=== PATIENT | male | born 1985 | race Caucasian/White ===

== ENCOUNTER 2017-11-21 03:48 | Emergency (ER) | payer OTHER ==
[~2017-11-21] VITALS: Ht 185.4 cm; Wt 186.2 kg
[~2017-11-21 03:48] MED LIST: ACYCLOVIR400 MG PO; ADVAIR 250/501 DISK IH; ADVAIR 500/501 DISK IH; ALEVE220 M2 PO; ALLEGRA30 MG; ALLOPURINOL300 MG PO; ALPRAZOLAM0.5 MG PO; AMBIEN5 MG PO; AUGMENTIN875 MG PO; CIPROFLOXACIN H10 ML BOTH EYES; COLACE100 MG PO; COMPAZINE10 MG PO; CYCLOBENZAPRINE10 MG PO; DAPSONE100 MG PO; DECADRON4 MG PO; DEXAMETHASONE4 MG PO; DOC-Q-LAX TABL1 EACH PO; DOCUSATE SODIU100 M1 PO; FLEXERIL10 MG PO; FLEXERIL5 MG PO; FLONASE16 G1 BOTH NARES; IRON325 M1 PO; LISINOPRIL5 MG PO; LOW DOSE ASPIRI81 M1 PO; MONTELUKAST SOD10 MG PO; MOTRIN800 MG PO; MUCUS RELIEF600 MG PO; NAPROSYN500 MG PO; NASONEX17 GM BOTH NARES; ONDANSETRON HCL8 MG PO; PREDNISONE20 MG PO; PROAIR HFA8.5 GM IH; PROVENTIL,2.5 MG/0.5 IH; ROXICODONE5 MG PO; SINGULAIR10 MG PO; TESSALON PERLE100 MG PO; TOPROL XL25 MG PO; TRAMADOL HCL50 MG PO; ULTRAM50 MG PO; XARELTO15 MG PO; ZYLOPRIM300 MG PO
[2017-11-21 05:09] LABS: HEMATOCRIT 44.1 % (38.0-50.0); HEMOGLOBIN 14.4 G/DL (12.5-16.6); MCH 26.6 PG (29.0-34.0); MCHC 32.7 G/DL (30.0-36.0); MCV 81.5 FL (86-99); PLATELET COUNT 253 K/uL (156-360); RBC DIS.WIDTH-CV 15.8 % (11.8-14.6); RBC DIS.WIDTH-SD 45.9 % (39-53); RED BLOOD COUNT 5.41 M/uL (4.00-5.50)
[2017-11-21 05:17] LABS: CHLORIDE 105 mEq/L (99-109); SODIUM 141 mEq/L (136-147)
[2017-11-21 05:18] LABS: GLUCOSE 121 mg/dL (70-99)
[2017-11-21 05:22] LABS: CREATININE 1.1 mg/dL (0.6-1.3); GFR ESTIMATE (CALCULATED) > 59 mL/min/ (58.99-99999)
[2017-11-21 05:23] LABS: UREA NITROGEN (BUN) 18 mg/dL (9-23)
[2017-11-21] MEDS ORDERED: PREDNISONE50 MG PO (06:48)
[2017-11-21 07:10] VITALS: BP 143/79
== END 2017-11-21 07:13 | disposition home or self-care (01) ==
LOC: EME 03:48
DX: J45.901 Unspecified asthma with (acute) exacerbation (principal); J20.9 Acute bronchitis, unspecified; R00.0 Tachycardia, unspecified; I10 Essential (primary) hypertension; Z85.72 Personal history of non-Hodgkin lymphomas; Z92.21 Personal history of antineoplastic chemotherapy; Z88.1 Allergy status to other antibiotic agents; Z88.2 Allergy status to sulfonamides
CPT/HCPCS: 71046; 80048; 85027; 93005; 94640; 99281; 99284; J7512